=== PATIENT | male | born 1995 | race Two or more races ===

== ENCOUNTER 2018-04-30 20:07 | Emergency (ER) | payer SELFPAY ==
[2018-04-30 20:25] VITALS: BP 125/76; PULSE 90; TEMP 99.1; BMI 24.4
[2018-04-30] MEDS ORDERED: FAMOTIDINE 20 MG/50 ML IVPB 20 MG/50 ML MG IVPB ONE ×2 (22:17→22:31)
--- NOTE | 2018-04-30 22:17 | PDOC ---
History of Present Illness - General Chief Complaint: Pain Stated Complaint: COLD SYMPTOMS Time Seen by Provider: 04/30/18 21:48 History Source: Patient Exam Limitations: No Limitations - History of Present Illness Initial Comments: 04/30/18 22:04 *Pt is Greek speaking. Friend translated. Pt is a previously healthy 22yo m presenting with complaints of epigastric pain that started 2 days ago. Pain has been constant, does not radiate. Worsened with pressing on his abdomen where the pain is, relieved with Advil. Associated with subjective fevers, loss of appetite. He denies vomiting, nausea, headache, diarrhea, urinary sympotoms, difficulty swallowing. Pt said he ate grilled meats but no one else got sick. He admits to drinking a few sips of alcohol 5 days ago. Never had this pain before. PCP: none PMH: none PSH: none Meds: none Allergies: nkda Past History - Past Medical History Allergies/Adverse Reactions: Allergies Allergy/AdvReac Type Severity Reaction Status Date / Time No Known Allergies Allergy Verified 04/30/18 20:26 Home Medications: Ambulatory Orders Esomeprazole Magnesium [Nexium 24Hr] 20 mg PO DAILY #10 capsule. 05/01/18 COPD: No - Suicide/Smoking/Psychosocial Hx Smoking History: Never smoked Review of Systems - Review of Systems Able to Perform ROS?: Yes Is the patient limited Maldivian proficient: No Constitutional: No: Chills, Fever, Weakness HEENTM: No: Recent change in vision, Throat Pain Respiratory: No: Cough, Shortness of Breath Cardiac (ROS): No: Chest Pain, Lightheadedness, Palpitations, Syncope ABD/GI: Yes: Poor Appetite, Abdominal cramping (epigastric). No: Abdominal Distended, Constipated, Diarrhea, Nausea, Vomiting : No: Burning, Dysuria, Flank Pain, Hematuria Musculoskeletal: No: Back Pain, Joint Pain, Muscle Weakness, Neck Pain Neurological: No: Headache, Numbness, Tingling, Tremors, Weakness *Physical Exam - Vital Signs Last Vital Signs Temp Pulse Resp BP Pulse Ox 99.1 F 90 18 125/76 97 04/30/18 20:23 04/30/18 20:23 04/30/18 20:23 04/30/18 20:23 04/30/18 20:23 - Physical Exam Comments: 05/01/18 05:32 Pt sitting comfortably in chair, friend sitting next to him. General Appearance: Yes: Nourished, Appropriately Dressed. No: Apparent Distress HEENT: positive: EOMI, ZINA, Normal Voice, Pharynx Normal, Hearing Grossly Normal. negative: Pale Conjunctivae, Scleral Icterus (R), Scleral Icterus (L), Nasal Congestion, Rhinorrhea Neck: positive: Trachea midline, Supple. negative: Lymphadenopathy (R), Lymphadenopathy (L) Respiratory/Chest: positive: Lungs Clear, Normal Breath Sounds. negative: Decreased Breath Sounds, Crackles, Rales, Rhonchi, Stridor, Wheezing Cardiovascular: positive: Regular Rhythm, Regular Rate, S1, S2. negative: Edema , JVD, Murmur Vascular Pulses: Carotid (R): 2+, Carotid (L): 2+, Dorsalis-Pedis (R): 2+, Doralis-Pedis (L): 2+ Gastrointestinal/Abdominal: positive: Normal Bowel Sounds, Soft, Tenderness ( epigastric tenderness). negative: Distended, Guarding, Rebound, Hernia, Mass Musculoskeletal: negative: CVA Tenderness Extremity: positive: Normal Capillary Refill. negative: Swelling, Calf Tenderness Integumentary: positive: Normal Color, Dry, Warm Neurologic: positive: appliances sample maker II-XII NML intact, Fully Oriented, Normal Mood/Affect , Normal Response, Motor Strength 5/5 ED Treatment Course - LABORATORY CBC & Chemistry Diagram: 04/30/18 22:31 04/30/18 22:31 Medical Decision Making - Medical Decision Making 05/01/18 05:34 previously healthy 22yo m presenting with epigastric pain x 2 days. Some relief with advil yesterday. Vitals: wnl PE: epigastric tenderness otherwise benign DDx: pancreatitis, cholecystitis, GERD, PUD, pna, acs, Low suspicion for acs given patient's age, lack of comorbid conditions and lack of chest pain. Lower suspicion for pancreatitis, cholecystisis given that pt is not vomiting, tolerating pain, no extensive drinking history, tolerating po. Higher suspicion for GERD/PUD/gastritis Will order cbc, cmp, lipase. upright abdominal xray ordered. Pt given maalox, pepcid. Labs wnl with exception of slightly elevated LFTs. Will refer pt to [facility]. xray negative for free air. PT reported some relief. Will order viscous lido. Pt has symptoms under control, labs wnl, tolerating po. Pt does not have follow up. Given referral to PCP as well as [facility]. hemodynamically stable. Pt can be dc home safely. Pt agreed with plan and verbalized understanding. Told to follow up with pcp/ge for LFT. Given strict return precautions and ways to manage symptoms. PT given rx for nexium. *DC/Admit/Observation/Transfer Diagnosis at time of Disposition: Abdominal pain Qualifiers: Abdominal location: epigastric Qualified Code(s): R10.13 - Epigastric pain - Discharge Dispostion Disposition: HOME Condition at time of disposition: Good Decision to Admit order: No - Prescriptions Prescriptions: Esomeprazole Magnesium [Nexium 24Hr] 20 mg PO DAILY #10 capsule.dr - Referrals Referrals: Jarret Pickett MD [Staff Physician] - - Patient Instructions Printed Discharge Instructions: DI for Abdominal Pain-Adult Additional Instructions: Te vieron aqu hoy por dolor abdominal. Hay phuong ligera elevacin en las enzimas del hgado, lynn el porsha de pyle trabajo de laboratorio fue normal. Le recomiendo encarecidamente que consulte a un mdico de atencin primaria para phuong evaluacin y gestin adicionales para estos resultados de laboratorio y para pyle dolor. Lilli he proporcionado un folleto con diferentes mdicos asociados con [facility]. Todo lo que tienes que hacer es llamar y hacer phuong tho. Reina te recomiendo que veas a un gastroenterlogo (mdico estomacal) reina. Por favor llame a la oficina del Dr. Pickett Por favor abstngase de beber alcohol, mantngase alejado de los DWIGHT kalin el ibuprofeno, Aleeve, Advil. Puedes france Pepcid, Prilosec o Maalox si sientes el dolor. Puede encontrar esto cerca de la farmacia en la mayora de las tiendas. Por favor tmelo kalin se indica en la caja. Regrese a la fab de emergencias si: pyle dolor empeora, el dolor baja y hacia la derecha, comienza a vomitar, observa joanne en el vmito, presenta fiebre o si se presenta algn sntoma nuevo. Malaika You were seen here today for abdominal pain. There is a slight elevation in your liver enzymes but the rest of your lab work was normal. I highly recommend that you see a primary care doctor for further evaluation and management for these lab results and for your pain. I have provided you a pamphlet with different doctors associated with this hospital. All you have to do is call and make an appointment. I also recommend that you see a ceramics machine operator (stomach doctor) as well. Please give a call to Dr. Pickett's office Please refrain from drinking alcohol, stay away from NSAIDs such as ibuprofen, Aleeve, Advil. You can take Pepcid, Prilosec or Maalox if you feel the pain. You can find this near the pharmacy in most stores. Please take it as directed on the box. Please come back to the emergency room if: your pain gets worse, Pain travels lower and to the right, you start vomiting, you notice blood in the vomit, you develop fever, or if any new concerning symptom develops. Thank you - Post Discharge Activity
[2018-04-30] MEDS ORDERED: MAG HYDROX/AL HYDROX/SIMETH 30 ML UNIT-DOSE CUP PO ONE (22:18)
[2018-04-30] MEDS ORDERED: MAG HYDROX/AL HYDROX/SIMETH 30 ML UNIT-DOSE CUP ONE (22:30)
[2018-04-30 22:50] LABS: BASO % 0.4 % (0-2.0); EOS % 1.6 % (0-4.5); HEMATOCRIT 40.9 % (35.4-49); HEMOGLOBIN 13.6 GM/dL (11.7-16.9); LYMPH % 13.5 % (8-40); MCH 31.5 pg (25.7-33.7); MCHC 33.2 g/dl (32.0-35.9); MEAN CELL VOLUME 94.7 fl (80-96); MONO % 8.3 % (3.8-10.2); NEUT % 76.2 % (42.8-82.8); PLATELET COUNT 247 K/MM3 (134-434); RBC 4.32 M/mm3 (4.00-5.60); RDW 13.8 % (11.9-15.9); WHITE BLOOD COUNT 10.7 K/mm3 (4.0-10.0)
--- NOTE | 2018-04-30 22:53 | PDOC ---
Attending Attestation - Resident Resident Name: Ania Donovan - ED Attending Attestation I have performed the following: I have examined & evaluated the patient, The case was reviewed & discussed with the resident, I agree w/resident's findings & plan, Exceptions are as noted - HPI HPI: 04/30/18 22:53 The patient is a 22-year-old male, with no past medical history, who presents to the ED with 2 days of epigastric pain. The patient states that the pain is constant and reproducible when he presses on his abdomen. This pain is associated with subjective fevers and loss of appetite. He reports taking Advil yesterday, which helped to alleviate his symptoms. He states that he has been eating grilled chicken, beef and salmon, but no one else in his household is experiencing these symptoms. He does report that he went to a libertarian on Saturday and had a few sips of beer and soda. The patient denies any chills, nausea, vomiting, diarrhea, constipation, or hematochezia. He denies any chest pain or shortness of breath. He denies any urinary symptoms. Allergies: NKA Social History: Social drinking. Surgical History: None reported. - Physicial Exam PE: 04/30/18 23:04 GENERAL: Awake, alert, and fully oriented, in no acute distress. HEAD: No signs of trauma EYES: PERRLA, EOMI, sclera anicteric, conjunctiva clear ENT: Auricles normal inspection, hearing grossly normal, nares patent, oropharynx clear without exudates. Moist mucosa NECK: Nontender, no stepoffs, Normal ROM, supple, no lymphadenopathy, JVD, or masses LUNGS: Breath sounds equal, clear to auscultation bilaterally. No wheezes, and no crackles HEART: Regular rate and rhythm, normal S1 and S2, no murmurs, rubs or gallops ABDOMEN: + epigastric TTP, normoactive bowel sounds. No guarding, no rebound. No masses EXTREMITIES: Normal range of motion, no edema. No clubbing or cyanosis. No cords, erythema, or tenderness NEUROLOGICAL: Cranial nerves II through XII intact. 5/5 strength and sensation in all extremities, Normal speech, normal gait, normal cerebellar function SKIN: Warm, Dry, normal turgor, no rashes or lesions noted. - Medical Decision Making 04/30/18 23:04 22 M with epigastric pain. Suspect gastritis vs PUD. - Labs, lipase - CXR - GI cocktail 05/01/18 00:08 Labs notable only for mild transaminitis. Bili normal and pt without RUQ tenderness. Will defer US for now. Pt informed of lab abnormality and understands need to f/u with PMD and GI. Pt is well appearing, with normal vitals. Clinically stable for DC at this time. I discussed the physical exam findings, ancillary test results and final diagnoses with the patient. I answered all of the patient's questions. The patient was satisfied with the care received and felt comfortable with the discharge plan and treatment plan. The patient agrees to follow up with the primary care physician within 24-72 hours.
[2018-04-30 23:29] LABS: ALBUMIN 3.4 g/dl (3.4-5.0); ALK PHOS 91 U/L (45-117); ANION GAP 9 MMOL/L (8-16); BILIRUBIN,TOTAL 0.8 mg/dL (0.2-1); BLOOD UREA NITROGEN 8 mg/dL (7-18); CALCIUM 9.1 mg/dL (8.5-10.1); CHLORIDE 100 mmol/L (98-107); CO2 28 mmol/L (21-32); CREATININE 0.8 mg/dL (0.55-1.3); GLUCOSE,RANDOM 93 mg/dL (74-106); LIPASE 161 U/L (73-393); POTASSIUM 4.4 mmol/L (3.5-5.1); SGOT/AST 86 U/L (15-37); SGPT/ALT 85 U/L (13-61); SODIUM 136 mmol/L (136-145); TOT PROT 7.7 g/dl (6.4-8.2)
[2018-05-01] MEDS ORDERED: LIDOCAINE VISCOUS 2% ORAL/TOP 20 ML UNIT-DOSE CUP MM ONE (00:05)
[2018-05-01] MEDS ORDERED: LIDOCAINE VISCOUS 2% ORAL/TOP 20 ML UNIT-DOSE CUP ONE (00:20)
== END 2018-05-01 00:37 | disposition home or self-care (01) ==
LOC: JER 20:07
PROC: 3E033GC Introduction of Other Therapeutic Substance into Peripheral Vein, Percutaneous Approach (ICD-10-PCS; principal; 2018-04-30)
DX: R10.13 Epigastric pain (principal)
CPT/HCPCS: 36415; 71046-TC-FY; 80053; 83690; 85025; 99281-25